=== PATIENT | male | born 2000 | race Asian ===

== ENCOUNTER 2023-02-25 03:38 | Emergency (ER) | payer OTHER, SELFPAY ==
--- NOTE | ~2023-02-25 | CT_ITS ---
EXAMINATION: CT ABDOMEN AND PELVIS WITH CONTRAST CLINICAL INFORMATION: Diffuse abdominal pain COMPARISON: None available. TECHNIQUE: Multidetector volumetric images were obtained from the superior aspect of the liver through the pubic symphysis following administration 85 mL of Omnipaque 350 intravenous contrast. Sagittal and coronal reformatted images were obtained on the technologist's workstation. Oral contrast: No This CT examination was performed using dose optimization techniques as appropriate, variously including the following: *Automated exposure control *Adjustment of mA and/or kV according to patient size (this includes techniques or standardized protocols for targeted exams where dose is matched to indication/reason for exam; i.e. extremities or head) *Use of iterative reconstruction technique DLP: 260 mGy-cm FINDINGS: LUNG BASES: The visualized lung bases are unremarkable. LIVER, GALLBLADDER, AND BILIARY TREE: The liver is normal in size, shape, and attenuation. No focal hepatic lesion or biliary ductal dilatation is present. Gallbladder appears to be contracted in the central upper abdomen. I do not see any adjacent inflammatory change. PANCREAS: Unremarkable. SPLEEN: Unremarkable. ADRENAL GLANDS: Unremarkable. KIDNEYS AND URETERS: The kidneys are normal in size, shape, and attenuation. No hydronephrosis, hydroureter, or calculi seen. No perinephric stranding. BLADDER: Thick walled but decompressed. GASTROINTESTINAL TRACT: There is no bowel obstruction or right lower quadrant inflammatory change. The sigmoid is decompressed and there is mild induration around the sigmoid colon and rectum. A mild colitis could have such an appearance. I do not see evidence for perforation or drainable abscess collection. ABDOMINAL WALL: No significant hernia is appreciated. LYMPH NODES: Normal. VASCULAR: Unremarkable. PELVIC VISCERA: Unremarkable. OSSEOUS STRUCTURES: Unremarkable. CT/CT abdomen pelvis w IV con IMPRESSION: There may be mild induration or inflammatory process related to the sigmoid colon and rectum suspicious for proctitis and colitis.
[2023-02-25 03:41] VITALS: BP 123/75; PULSE 89; RESP 18; TEMP 36.8; O2SAT 97; BMI 23.0
[2023-02-25 04:38] LABS: Basophils Percent Auto 0.2 % (0-2); Eosinophils Absolute Auto 0.1 X10*3/uL (0.0-0.4); Eosinophils Percent Auto 0.9 % (0-4); Hemoglobin 17.4 g/dl (14.0-18.0); Imm Gran Abs Auto 0.07 X10*3/uL (0.00-0.03); Imm Gran Pct Auto 0.4 % (0.0-0.4); Lymphocytes Absolute Auto 1.6 X10*3/uL (1.2-4.9); MANUAL DIFF FLAG NO; Mean Corpuscular HGB Conc 34.8 g/dl (31.0-36.0); Mean Corpuscular Hemoglobin 30.5 pg (27.0-33.0); Mean Corpuscular Volume 87.7 fL (80.0-98.0); Mean Platelet Volume 10.4 fL (9.4-12.4); Monocytes Absolute Auto 0.1 X10*3/uL (0.1-1.2); Monocytes Percent Auto 0.4 % (2-11); Neutrophils Absolute Auto 14.3 x10*3/uL (2.0-8.3); Neutrophils Percent Auto 88.1 % (45-73); Platelet Count 208 X10*3/uL (160-400); Red Cell Distribution Width 11.6 % (11.0-16.0); White Blood Count 16.3 X10*3/uL (4.8-10.8)
[2023-02-25 05:06] LABS: Alanine Aminotransferase 15 U/L (0-40); Albumin Level 4.8 g/dL (3.5-5.0); Alkaline Phosphatase 84 U/L (39-117); Anion Gap 16 (12-20); Aspartate Amino Transferase 15 U/L (5-37); Bilirubin Direct 0.2 mg/dL (0.0-0.5); Bilirubin Total 0.8 mg/dL (0.0-1.0); Blood Urea Nitrogen 18 mg/dL (9-16); Carbon Dioxide 25 mmol/L (22-29); Chloride 103 mmol/L (96-108); Creatinine Clr Calc Pharmacy 125.2; Estimated Glomerular Filt Rate > 60; Glucose Random 164 mg/dL (60-115); Lipase 22 U/L (8-78); Potassium 3.9 mmol/L (3.3-5.1); Sodium 140 mmol/L (135-145); Total Protein 7.5 g/dL (6.5-8.0)
[2023-02-25 05:31] VITALS: BP 134/85; PULSE 108; TEMP 38.1; O2SAT 99
--- NOTE | 2023-02-25 05:32 | MHC.EDTECH ---
pt arrived with an internal temp of 100.5. pt clothing removed and placed on monitor technician
--- NOTE | 2023-02-25 05:42 | ECG_ITS ---
Test Reason : LETHARGIC Blood Pressure : / mmHG Vent. Rate : 113 BPM Atrial Rate : 113 BPM P-R Int : 128 ms QRS Dur : 110 ms QT Int : 328 ms P-R-T Axes : 076 128 048 degrees QTc Int : 449 ms Sinus tachycardia Biatrial enlargement Right axis deviation Pulmonary disease pattern Incomplete right bundle branch block Right ventricular hypertrophy Abnormal ECG No previous ECGs available Referred By: Generic ED Physician Electronically Signed By:DORCAS MADRIGAL MD
--- NOTE | 2023-02-25 05:59 | ED.ABDPAIN ---
HPI - Abdominal Pain General Chief Complaint: Abdominal Pain <Patience Goss MD - Last Filed: 02/25/23 06:27> Stated Complaint: stomach pain, n/v <Patience Goss MD - Last Filed: 02/25/23 06:27> Time Seen by Provider: 02/25/23 06:19 <Patience Goss MD - Last Filed: 02/25/23 06:27> Source: patient <Patience Goss MD - Last Filed: 02/25/23 06:27> Mode of arrival: ambulatory <Patience Goss MD - Last Filed: 02/25/23 06:27> Limitations: no limitations <Patience Goss MD - Last Filed: 02/25/23 06:27> History of Present Illness HPI narrative: Patient comes to the emergency room complaining of diffuse abdominal pain, nausea vomiting and diarrhea. Also fever. Patient states that 3 hours ago he woke up with excruciating abdominal pain. Had multiple episodes of vomiting and diarrhea. Patient states that yesterday before he went to bed, he was asymptomatic. Patient states that he is gluten intolerant, does not believe that he ate anything with gluten. <Patience Goss MD - Last Filed: 02/25/23 06:27> Related Data Home Medications: Previous Rx's Medication Instructions Recorded amoxicillin 875 mg-potassium 1 tab PO Q8H 10 days #30 tabs 02/25/23 clavulanate 125 mg tablet <Patience Goss MD - Last Filed: 02/25/23 06:27> Allergies/Adverse Reactions: Allergies Allergy/AdvReac Type Severity Reaction Status Date / Time No Known Allergies Allergy Unverified 07/11/20 19:15 [No Known Allergies*] <Patience Goss MD - Last Filed: 02/25/23 06:27> Review of Systems Review of Systems Constitutional : No Weight loss, No Fever, No Chills, No Night Sweats, No Fatigue, No Malaise ENT/Mouth : No Hearing loss, No Ear Pain, No Nasal Congestion, No Sinus Pain, No Hoarseness, No sore throat, No Rhinorrhea, No Swallowing Difficulty Eyes: No Eye Pain, No Swelling, No Redness, No Foreign Body, No Discharge, No Vision Changes Cardiovascular : No Chest Pain, No SOB, No Dyspnea on Exertion, No Orthopnea, No Edema, No Palpitations Respiratory : No Cough, No Sputum, No Wheezing, No Smoke Exposure, No Dyspnea Gastrointestinal : Complaining of nausea vomiting diarrhea, abdominal pain, and blood in the stool Genitourinary : no irregular bleeding, No Dysuria, No Urinary Frequency, No Hematuria, No Urinary Incontinence, No Urgency, No Flank Pain, No Urinary Flow Changes, No Hesitancy Musculoskeletal : No joint pain, No Myalgias, No Joint Swelling Skin : No Skin Lesions, No rash Neuro : No Weakness, No Numbness, No Paresthesias, No Loss of Consciousness, No Dizziness, No Headache Psych : No Anxiety/Panic, No Depression, No SI/HI/AH/VH, No Social Issues, Heme/Lymph: No Bruising, No Bleeding,No Lymphadenopathy Endocrine : No Polyuria, No Polydipsia, No Temperature Intolerance <Patience Goss MD - Last Filed: 02/25/23 06:27> [facility] Past Medical History Medical History: Medical History (Updated 02/25/23 @ 09:23 by David Servin MD) Gluten intolerance <Patience Goss MD - Last Filed: 02/25/23 06:27> Social History Social History: Social History Alcohol intake: never Smoked in Last 30 Days: No Use of substances other than those prescribed or required for medical reasons: No Advance Directives: No Advance Directives Information Provided: Yes <Patience Goss MD - Last Filed: 02/25/23 06:27> Physical Exam ED Vital Signs: Vital Signs - 24 hr 02/25/23 03:41 02/25/23 05:31 02/25/23 07:15 Temperature 98.3 F 100.5 F H Pulse Rate 89 108 H 96 Respiratory Rate 18 18 Blood Pressure 123/75 134/85 112/66 Pulse Oximetry 97 99 97 Oxygen Delivery Method Room Air Room Air Room Air BMI result Body Mass Index 23.0 <Patience Goss MD - Last Filed: 02/25/23 06:27> Vital Signs - 24 hr 02/25/23 03:41 02/25/23 05:31 02/25/23 07:15 Temperature 98.3 F 100.5 F H Pulse Rate 89 108 H 96 Respiratory Rate 18 18 Blood Pressure 123/75 134/85 112/66 Pulse Oximetry 97 99 97 Oxygen Delivery Method Room Air Room Air Room Air BMI result Body Mass Index 23.0 <David Servin MD - Last Filed: 02/25/23 09:25> Const Other: Appearance: Alert. Oriented X3. Ill-appearing Eyes: Pupils equal, round and reactive to light. ENT: Pharynx normal. Neck: Normal inspection. Neck supple. No lymph nodes noted. No crepitus CVS: Normal heart rate and rhythm. Pulses normal. Normal S1 and S2 Respiratory: No respiratory distress. Breath sounds normal. No Wheezing. No rales Abdomen: Soft and nontender. No rigidity. No distention. Skin: Skin warm and dry. Normal skin color. Normal skin turgor. Extremities: No lower extremity edema. No Lacerations. No Rash Neuro: Oriented X 3. No motor deficit. No sensory deficit. Moving all extremities. No slurred speech. CN 2 through 12 grossly intact Psych: calm, cooperative, normal affect <Patience Goss MD - Last Filed: 02/25/23 06:27> Course Course Course Narrative: -all of patient's labs and imaging pending. -patient receiving IV fluids, Tylenol, loperamide and Zofran. <Patience Goss MD - Last Filed: 02/25/23 06:27> Reevaluation(s) Reevaluation #1: I evaluated the patient. He is currently receiving antibiotics. Mother was concerned about intravenous contrast. I spoke with patient and mother for approximately 10 minutes about alternatives. Ultimately they agreed to have an intravenous contrast study. We also discussed assuming patient can be discharged, and appropriate clear liquid diet and reasons to return to the hospital. However, we were will still need to have evaluate imaging studies to determine an appropriate disposition. <David Servin MD - Last Filed: 02/25/23 09:25> Time: 08:00 <David Servin MD - Last Filed: 02/25/23 09:25> Reevaluation #2: Patient's CT scan is complete. Demonstrates proctocolitis. This could be infectious or inflammatory. Will treat for infectious etiology. Will refer to a gastroenterology. Patient will start Augmentin 3 times daily. In addition, patient was made aware to start a clear liquid diet for least the next 48 hours. He is in been instructed to return for worsening bleeding, abdominal pain, intractable nausea vomiting or any other concerning symptoms. <David Servin MD - Last Filed: 02/25/23 09:25> Time: 09:22 <David Servin MD - Last Filed: 02/25/23 09:25> Medical Decision Making Medical Decision Making [facility] Narrative: -patient has a fever, elevated white blood cell count. Blood pressure is stable, sepsis is not suspected. occult stool test positive for blood. Patient likely has colitis. We will empirically treated with antibiotics -patient receiving IV fluids. Levaquin and metronidazole IV -CT scan pending <Patience Goss MD - Last Filed: 02/25/23 06:27> Lab Data Result Diagrams: 02/25/23 04:34 02/25/23 04:34 <Patience Goss MD - Last Filed: 02/25/23 06:27> Labs: Lab Results 02/25/23 02/25/23 02/25/23 Range/Units 04:34 04:34 06:08 WBC 16.3 H (4.8-10.8) X10*3/uL RBC 5.70 (4.60-5.80) X10*6/uL Hgb 17.4 (14.0-18.0) g/dl Hct 50.0 (42.0-52.0) % MCV 87.7 (80.0-98.0) fL MCH 30.5 (27.0-33.0) pg MCHC 34.8 (31.0-36.0) g/dl RDW 11.6 (11.0-16.0) % Plt Count 208 (160-400) X10*3/uL MPV 10.4 (9.4-12.4) fL Immature Gran % (Auto) 0.4 (0.0-0.4) % Neut % (Auto) 88.1 H (45-73) % Lymph % (Auto) 10.0 L (20-40) % [place] % (Auto) 0.4 L (2-11) % Eos % (Auto) 0.9 (0-4) % Baso % (Auto) 0.2 (0-2) % Lymph # (Auto) 1.6 (1.2-4.9) X10*3/uL [place] # (Auto) 0.1 (0.1-1.2) X10*3/uL Eos # (Auto) 0.1 (0.0-0.4) X10*3/uL Baso # (Auto) 0.0 (0.0-0.2) X10*3/uL Abs Immat Gran (auto) 0.07 H (0.00-0.03) X10*3/uL Absolute Neuts (auto) 14.3 H (2.0-8.3) x10*3/uL Absolute Nucleated RBC 0.000 (0.0-0.012) X10*3/uL Nucleated RBC % (auto) 0.0 (0.0-0.2) /100WBC Sodium 140 (135-145) mmol/L Potassium 3.9 (3.3-5.1) mmol/L Chloride 103 (96-108) mmol/L Carbon Dioxide 25 (22-29) mmol/L Anion Gap 16 (12-20) BUN 18 H (9-16) mg/dL Creatinine 0.95 (0.5-1.4) mg/dL Estim Creat Clear Calc 125.2 Estimated GFR > 60 Random Glucose 164 H (60-115) mg/dL Lactic Acid 2.3 H* (0.5-2.0) mmol/L Calcium 10.0 (8.4-10.2) mg/dL Total Bilirubin 0.8 (0.0-1.0) mg/dL Direct Bilirubin 0.2 (0.0-0.5) mg/dL AST 15 (5-37) U/L ALT 15 (0-40) U/L Alkaline Phosphatase 84 (39-117) U/L Total Protein 7.5 (6.5-8.0) g/dL Albumin 4.8 (3.5-5.0) g/dL Lipase 22 (8-78) U/L Urine Color Urine Appearance Urine pH (5.0-9.0) Ur Specific [place] (1.005-1.025) Urine Protein (Neg-Trace) mg/dL Urine Glucose (UA) (Negative) mg/dL Urine Ketones (Negative) mg/dL Urine Blood (Negative) Urine Nitrite (Negative) Ur Leukocyte Esterase (Negative) Urine RBC (0-2) /HPF Urine WBC (0-5) /HPF Ur Squamous Epith Cells (0-2) /HPF Urine Bacteria (None Seen) Hyaline Casts (0-2) /LPF Stool Occult Blood (NEGATIVE) Urine Opiates Screen (Not Detect) Urine Fentanyl Screen (Not Detect) Ur Barbiturates Screen (Not Detect) Ur Phencyclidine Scrn (Not Detect) Ur Amphetamines Screen (Not Detect) U Benzodiazepines Scrn (Not Detect) Urine Cocaine Screen (Not Detect) U Marijuana (THC) Screen (Not Detect) 02/25/23 02/25/23 02/25/23 Range/Units 06:08 07:46 07:46 WBC (4.8-10.8) X10*3/uL RBC (4.60-5.80) X10*6/uL Hgb (14.0-18.0) g/dl Hct (42.0-52.0) % MCV (80.0-98.0) fL MCH (27.0-33.0) pg MCHC (31.0-36.0) g/dl RDW (11.0-16.0) % Plt Count (160-400) X10*3/uL MPV (9.4-12.4) fL Immature Gran % (Auto) (0.0-0.4) % Neut % (Auto) (45-73) % Lymph % (Auto) (20-40) % [place] % (Auto) (2-11) % Eos % (Auto) (0-4) % Baso % (Auto) (0-2) % Lymph # (Auto) (1.2-4.9) X10*3/uL [place] # (Auto) (0.1-1.2) X10*3/uL Eos # (Auto) (0.0-0.4) X10*3/uL Baso # (Auto) (0.0-0.2) X10*3/uL Abs Immat Gran (auto) (0.00-0.03) X10*3/uL Absolute Neuts (auto) (2.0-8.3) x10*3/uL Absolute Nucleated RBC (0.0-0.012) X10*3/uL Nucleated RBC % (auto) (0.0-0.2) /100WBC Sodium (135-145) mmol/L Potassium (3.3-5.1) mmol/L Chloride (96-108) mmol/L Carbon Dioxide (22-29) mmol/L Anion Gap (12-20) BUN (9-16) mg/dL Creatinine (0.5-1.4) mg/dL Estim Creat Clear Calc Estimated GFR Random Glucose (60-115) mg/dL Lactic Acid (0.5-2.0) mmol/L Calcium (8.4-10.2) mg/dL Total Bilirubin (0.0-1.0) mg/dL Direct Bilirubin (0.0-0.5) mg/dL AST (5-37) U/L ALT (0-40) U/L Alkaline Phosphatase (39-117) U/L Total Protein (6.5-8.0) g/dL Albumin (3.5-5.0) g/dL Lipase (8-78) U/L Urine Color Dark Yellow Urine Appearance Clear Urine pH 5.5 (5.0-9.0) Ur Specific [place] >= 1.030 H (1.005-1.025) Urine Protein 30 (1+) H (Neg-Trace) mg/dL Urine Glucose (UA) 100 H (Negative) mg/dL Urine Ketones Trace (Negative) mg/dL Urine Blood Negative (Negative) Urine Nitrite Negative (Negative) Ur Leukocyte Esterase Negative (Negative) Urine RBC 0-2 (0-2) /HPF Urine WBC 0-5 (0-5) /HPF Ur Squamous Epith Cells 0-2 (0-2) /HPF Urine Bacteria None Seen (None Seen) Hyaline Casts 0-2 (0-2) /LPF Stool Occult Blood POSITIVE (NEGATIVE) Urine Opiates Screen Not Detected (Not Detect) Urine Fentanyl Screen Not Detected (Not Detect) Ur Barbiturates Screen Not Detected (Not Detect) Ur Phencyclidine Scrn Not Detected (Not Detect) Ur Amphetamines Screen Not Detected (Not Detect) U Benzodiazepines Scrn Not Detected (Not Detect) Urine Cocaine Screen Not Detected (Not Detect) U Marijuana (THC) Screen Not Detected (Not Detect) <Patience Goss MD - Last Filed: 02/25/23 06:27> Lab Results 02/25/23 02/25/23 02/25/23 Range/Units 04:34 04:34 06:08 WBC 16.3 H (4.8-10.8) X10*3/uL RBC 5.70 (4.60-5.80) X10*6/uL Hgb 17.4 (14.0-18.0) g/dl Hct 50.0 (42.0-52.0) % MCV 87.7 (80.0-98.0) fL MCH 30.5 (27.0-33.0) pg MCHC 34.8 (31.0-36.0) g/dl RDW 11.6 (11.0-16.0) % Plt Count 208 (160-400) X10*3/uL MPV 10.4 (9.4-12.4) fL Immature Gran % (Auto) 0.4 (0.0-0.4) % Neut % (Auto) 88.1 H (45-73) % Lymph % (Auto) 10.0 L (20-40) % [place] % (Auto) 0.4 L (2-11) % Eos % (Auto) 0.9 (0-4) % Baso % (Auto) 0.2 (0-2) % Lymph # (Auto) 1.6 (1.2-4.9) X10*3/uL [place] # (Auto) 0.1 (0.1-1.2) X10*3/uL Eos # (Auto) 0.1 (0.0-0.4) X10*3/uL Baso # (Auto) 0.0 (0.0-0.2) X10*3/uL Abs Immat Gran (auto) 0.07 H (0.00-0.03) X10*3/uL Absolute Neuts (auto) 14.3 H (2.0-8.3) x10*3/uL Absolute Nucleated RBC 0.000 (0.0-0.012) X10*3/uL Nucleated RBC % (auto) 0.0 (0.0-0.2) /100WBC Sodium 140 (135-145) mmol/L Potassium 3.9 (3.3-5.1) mmol/L Chloride 103 (96-108) mmol/L Carbon Dioxide 25 (22-29) mmol/L Anion Gap 16 (12-20) BUN 18 H (9-16) mg/dL Creatinine 0.95 (0.5-1.4) mg/dL Estim Creat Clear Calc 125.2 Estimated GFR > 60 Random Glucose 164 H (60-115) mg/dL Lactic Acid 2.3 H* (0.5-2.0) mmol/L Calcium 10.0 (8.4-10.2) mg/dL Total Bilirubin 0.8 (0.0-1.0) mg/dL Direct Bilirubin 0.2 (0.0-0.5) mg/dL AST 15 (5-37) U/L ALT 15 (0-40) U/L Alkaline Phosphatase 84 (39-117) U/L Total Protein 7.5 (6.5-8.0) g/dL Albumin 4.8 (3.5-5.0) g/dL Lipase 22 (8-78) U/L Urine Color Urine Appearance Urine pH (5.0-9.0) Ur Specific [place] (1.005-1.025) Urine Protein (Neg-Trace) mg/dL Urine Glucose (UA) (Negative) mg/dL Urine Ketones (Negative) mg/dL Urine Blood (Negative) Urine Nitrite (Negative) Ur Leukocyte Esterase (Negative) Urine RBC (0-2) /HPF Urine WBC (0-5) /HPF Ur Squamous Epith Cells (0-2) /HPF Urine Bacteria (None Seen) Hyaline Casts (0-2) /LPF Stool Occult Blood (NEGATIVE) Urine Opiates Screen (Not Detect) Urine Fentanyl Screen (Not Detect) Ur Barbiturates Screen (Not Detect) Ur Phencyclidine Scrn (Not Detect) Ur Amphetamines Screen (Not Detect) U Benzodiazepines Scrn (Not Detect) Urine Cocaine Screen (Not Detect) U Marijuana (THC) Screen (Not Detect) 02/25/23 02/25/23 02/25/23 Range/Units 06:08 07:46 07:46 WBC (4.8-10.8) X10*3/uL RBC (4.60-5.80) X10*6/uL Hgb (14.0-18.0) g/dl Hct (42.0-52.0) % MCV (80.0-98.0) fL MCH (27.0-33.0) pg MCHC (31.0-36.0) g/dl RDW (11.0-16.0) % Plt Count (160-400) X10*3/uL MPV (9.4-12.4) fL Immature Gran % (Auto) (0.0-0.4) % Neut % (Auto) (45-73) % Lymph % (Auto) (20-40) % [place] % (Auto) (2-11) % Eos % (Auto) (0-4) % Baso % (Auto) (0-2) % Lymph # (Auto) (1.2-4.9) X10*3/uL [place] # (Auto) (0.1-1.2) X10*3/uL Eos # (Auto) (0.0-0.4) X10*3/uL Baso # (Auto) (0.0-0.2) X10*3/uL Abs Immat Gran (auto) (0.00-0.03) X10*3/uL Absolute Neuts (auto) (2.0-8.3) x10*3/uL Absolute Nucleated RBC (0.0-0.012) X10*3/uL Nucleated RBC % (auto) (0.0-0.2) /100WBC Sodium (135-145) mmol/L Potassium (3.3-5.1) mmol/L Chloride (96-108) mmol/L Carbon Dioxide (22-29) mmol/L Anion Gap (12-20) BUN (9-16) mg/dL Creatinine (0.5-1.4) mg/dL Estim Creat Clear Calc Estimated GFR Random Glucose (60-115) mg/dL Lactic Acid (0.5-2.0) mmol/L Calcium (8.4-10.2) mg/dL Total Bilirubin (0.0-1.0) mg/dL Direct Bilirubin (0.0-0.5) mg/dL AST (5-37) U/L ALT (0-40) U/L Alkaline Phosphatase (39-117) U/L Total Protein (6.5-8.0) g/dL Albumin (3.5-5.0) g/dL Lipase (8-78) U/L Urine Color Dark Yellow Urine Appearance Clear Urine pH 5.5 (5.0-9.0) Ur Specific [place] >= 1.030 H (1.005-1.025) Urine Protein 30 (1+) H (Neg-Trace) mg/dL Urine Glucose (UA) 100 H (Negative) mg/dL Urine Ketones Trace (Negative) mg/dL Urine Blood Negative (Negative) Urine Nitrite Negative (Negative) Ur Leukocyte Esterase Negative (Negative) Urine RBC 0-2 (0-2) /HPF Urine WBC 0-5 (0-5) /HPF Ur Squamous Epith Cells 0-2 (0-2) /HPF Urine Bacteria None Seen (None Seen) Hyaline Casts 0-2 (0-2) /LPF Stool Occult Blood POSITIVE (NEGATIVE) Urine Opiates Screen Not Detected (Not Detect) Urine Fentanyl Screen Not Detected (Not Detect) Ur Barbiturates Screen Not Detected (Not Detect) Ur Phencyclidine Scrn Not Detected (Not Detect) Ur Amphetamines Screen Not Detected (Not Detect) U Benzodiazepines Scrn Not Detected (Not Detect) Urine Cocaine Screen Not Detected (Not Detect) U Marijuana (THC) Screen Not Detected (Not Detect) <David Servin MD - Last Filed: 02/25/23 09:25> Independent Interpretation I performed an independent interpretation of an: CT Scan ( CT/CT abdomen pelvis w IV con IMPRESSION: There may be mild induration or inflammatory process related to the sigmoid colon and rectum suspicious for proctitis and colitis. Dictated By:Humza Early MDSigned By:<Electronically signed by Humza Early MD in [place]>02/25/23 0850) <David Servin MD - Last Filed: 02/25/23 09:25> Medications Administered Discontinued Medications Generic Name Dose Route Start Last Admin Trade Name Freq PRN Reason Stop Dose Admin Acetaminophen 975 mg 02/25/23 05:58 02/25/23 06:15 Acetaminophen 325 Mg Tablet PO 02/25/23 05:59 975 mg ONCE ONE Administration Sodium Chloride 1,000 mls @ 999 mls/hr 02/25/23 05:50 02/25/23 07:16 Ns IVCONT 02/25/23 06:50 Infused .Q1H1M ONE Infusion Levofloxacin 500 mg in 100 mls @ 100 mls/hr 02/25/23 06:25 02/25/23 07:16 Levaquin IV 02/25/23 07:24 Infused ONCE ONE Infusion Metronidazole 500 mg in 100 mls @ 100 mls/hr 02/25/23 06:25 02/25/23 08:54 Flagyl IV 02/25/23 07:24 Infused ONCE ONE Infusion Iohexol 100 ml 02/25/23 08:31 02/25/23 08:31 Iohexol 350 Mg/Ml 100 Ml Infus..Btl IV 02/25/23 08:32 85 ml ONCE ONE Administration Loperamide HCl 4 mg 02/25/23 05:58 02/25/23 06:15 Loperamide Hcl 2 Mg Capsule PO 02/25/23 05:59 4 mg ONCE ONE Administration Ondansetron HCl 4 mg 02/25/23 05:50 02/25/23 06:15 Ondansetron Hcl 4 Mg/2 Ml Vial IVPUSH 02/25/23 05:51 4 mg ONCE ONE Administration <Patience Goss MD - Last Filed: 02/25/23 06:27> Medications Administered Discontinued Medications Generic Name Dose Route Start Last Admin Trade Name Freq PRN Reason Stop Dose Admin Acetaminophen 975 mg 02/25/23 05:58 02/25/23 06:15 Acetaminophen 325 Mg Tablet PO 02/25/23 05:59 975 mg ONCE ONE Administration Sodium Chloride 1,000 mls @ 999 mls/hr 02/25/23 05:50 02/25/23 07:16 Ns IVCONT 02/25/23 06:50 Infused .Q1H1M ONE Infusion Levofloxacin 500 mg in 100 mls @ 100 mls/hr 02/25/23 06:25 02/25/23 07:16 Levaquin IV 02/25/23 07:24 Infused ONCE ONE Infusion Metronidazole 500 mg in 100 mls @ 100 mls/hr 02/25/23 06:25 02/25/23 08:54 Flagyl IV 02/25/23 07:24 Infused ONCE ONE Infusion Iohexol 100 ml 02/25/23 08:31 02/25/23 08:31 Iohexol 350 Mg/Ml 100 Ml Infus..Btl IV 02/25/23 08:32 85 ml ONCE ONE Administration Loperamide HCl 4 mg 02/25/23 05:58 02/25/23 06:15 Loperamide Hcl 2 Mg Capsule PO 02/25/23 05:59 4 mg ONCE ONE Administration Ondansetron HCl 4 mg 02/25/23 05:50 02/25/23 06:15 Ondansetron Hcl 4 Mg/2 Ml Vial IVPUSH 02/25/23 05:51 4 mg ONCE ONE Administration <David Servin MD - Last Filed: 02/25/23 09:25> Discharge Plan Discharge Clinical Impression: Abdominal pain, Nausea vomiting and diarrhea, Bloody stool <Patience Goss MD - Last Filed: 02/25/23 06:27> Patient Disposition: Home, Self-Care <Patience Goss MD - Last Filed: 02/25/23 06:27> Instructions: Gastrointestinal Bleeding (ED), Crohn Disease (ED), Clear Liquid Diet (ED), Ulcerative Colitis (ED), Abdominal Pain (ED), Colitis (ED) <Patience Goss MD - Last Filed: 02/25/23 06:27> Prescriptions: New amoxicillin-pot clavulanate 875-125 mg tablet 1 tab PO Q8H 10 Days Qty: 30 0RF <Patience Goss MD - Last Filed: 02/25/23 06:27> Referrals: Lucio Oleary MD [Physician] - 1 week <Patience Goss MD - Last Filed: 02/25/23 06:27>
[2023-02-25] MEDS: Acetaminophen 325 MG TABLET 975 MG PO (06:15)
[2023-02-25] MEDS: 0.9 % Sodium Chloride 1,000 ML 999 ML IVCONT (06:15)
[2023-02-25] MEDS: Loperamide HCl 2 MG CAPSULE 4 MG PO (06:15)
[2023-02-25] MEDS: ondansetron HCL 4 MG/2 ML VIAL IVPUSH (06:15)
[2023-02-25 06:23] LABS: OBS Int Ctl Valid YES; OBS1 POSITIVE (NEGATIVE)
[2023-02-25 06:32] LABS: Lactic Acid 2.3 mmol/L (0.5-2.0)
[2023-02-25] MEDS: levoFLOXacin/D5W 500 MG/100 ML PIGGYBACK 100 MG IV (06:36)
[2023-02-25 07:15] VITALS: BP 112/66; PULSE 96; RESP 18; O2SAT 97
--- NOTE | 2023-02-25 07:20 | PC.NURSE ---
pt is alert and oriented, skin warm to touch and appropriate for ethnicity, respirations even and unlabored, abd soft and non-tender, bowel sounds in all 4 quadrants, pt denies pain and denies nausea. pt reports when he has a bowel movement noticed blood in the stool, vs stable and ns on the monitor
[2023-02-25] MEDS: metroNIDAZOLE/NS 500 MG/100 ML PIGGYBACK 100 MG IV (07:21)
[2023-02-25 07:53] LABS: Appearance Urine Clear; Color Urine Dark Yellow; Glucose Urine UA 100 mg/dL (Negative); Leukocyte Esterase Urine Negative (Negative); Nitrite Urine Negative (Negative); PH 5.5 (5.0-9.0); Specific Gravity - Urine >= 1.030 (1.005-1.025); UMIC TRIGGER UACC YES; Urine Blood Negative (Negative); Urine Ketones Trace mg/dL (Negative); Urine Protein 30 (1+) mg/dL (Neg-Trace)
[2023-02-25 07:56] LABS: Bacteria Urine None Seen (None Seen); Hyaline Casts Urine 0-2 /LPF (0-2); RBC Urine 0-2 /HPF (0-2); Squamous Epithelial Cell Urine 0-2 /HPF (0-2); WBC Urine 0-5 /HPF (0-5)
[2023-02-25 08:04] LABS: Amphetamine Screen Urine Not Detected (Not Detect); Barbiturates, Urine Not Detected (Not Detect); Benzodiazepines Screen Urine Not Detected (Not Detect); Cannabinoid Screen Urine Not Detected (Not Detect); Cocaine Screen Urine Not Detected (Not Detect); Fentanyl, urine Not Detected (Not Detect); Opiate Screen Urine Not Detected (Not Detect); Phencyclidine Screen Urine Not Detected (Not Detect)
[2023-02-25 08:16] LABS: Reflex Lactate? Lactic Acid Added
[2023-02-25] MEDS: iohexoL 350 MG/ML 100 ML INFUS..BTL IV (08:31)
[2023-02-25 09:34] LABS: ~Lactic Acid-LAB USE ONLY 1.9 mmol/L (0.5-2.0)
== END 2023-02-25 10:15 | disposition home or self-care (01) ==
PROVIDERS: Emergency Medicine; Emergency Provider Emergency Medicine
DX: R10.9 Unspecified abdominal pain (principal); R11.2 Nausea with vomiting, unspecified; R19.7 Diarrhea, unspecified; K92.1 Melena
CPT/HCPCS: 36415; 74177; 80048; 80076; 80307; 81001; 82272; 83605; 83690; 85025; 87040; 93005; 96361; 96365; 96375; 99284; 99285; J1956; J2405; Q9967

== ENCOUNTER 2023-02-26 00:53 | Emergency (ER) | payer OTHER, SELFPAY ==
[2023-02-26 01:58] VITALS: BP 124/86; PULSE 78; RESP 16; TEMP 37.1; O2SAT 97; BMI 15.5
--- NOTE | 2023-02-26 04:21 | ED_ITS ---
HPI - GI Bleed General Chief complaint: Abdominal Pain Stated complaint: Rectal bleeding Time Seen by Provider: 02/26/23 04:20 Source: patient Mode of arrival: ambulatory Limitations: no limitations History of Present Illness HPI Narrative: Patient was seen here last night for diffuse abdominal pain nausea vomiting and diarrhea with occult blood positive workup showed colitis and proctitis was prescribed Augmentin comes back as had 2 more bowel movements which were bloody did not eat or drink all day today took this augment no recent travel no fever or chills Related Data Previous Rx's Medication Instructions Recorded amoxicillin 875 mg-potassium 1 tab PO Q8H 10 days #30 tabs 02/25/23 clavulanate 125 mg tablet cefuroxime axetil 500 mg tablet 500 mg PO BID #20 tabs 02/26/23 metronidazole 500 mg tablet 500 mg PO BID 10 days #20 tabs 02/26/23 Allergies Allergy/AdvReac Type Severity Reaction Status Date / Time gluten AdvReac Abdominal Verified 02/26/23 02:03 Pain Review of Systems Review of Systems: Yes all other systems are reviewed and are negative [facility] Past Medical History Medical History Gluten intolerance Social History Social History Alcohol intake: never Advance Directives: No Advance Directives Information Provided: No Physical Exam Vital Signs: Vital Signs: Last Vital Signs Temp 98.8 F 02/26/23 01:58 Pulse 78 02/26/23 01:58 Resp 16 02/26/23 01:58 BP 124/86 02/26/23 01:58 Pulse Ox 97 02/26/23 01:58 O2 Del Method Room Air 02/26/23 01:58 BMI result Body Mass Index 15.5 Appearance: Alert. Oriented X3. No acute distress. Eyes: PERRLA, No Nystagmus ENT: Pharynx normal. Oral Mucosa moist Neck: Normal inspection. Neck supple. CVS: Normal heart rate and rhythm. Pulses normal. Respiratory: No respiratory distress. Equal air entry bilateral, no wheezing/rales/rhonchi Abdomen: Soft , diffuse tenderness Bowel sounds are present, no mass palpable, no CVA tenderness Skin: Skin warm and dry. Normal skin color. Normal skin turgor. Extremities: No lower extremity edema. No calf tenderness Neuro: Oriented X 3. No motor deficit. No sensory deficit.No cerebellar signs , cranial nerves II-XII intact Medications Administered Discontinued Medications Generic Name Dose Route Start Last Admin Trade Name Rosemarie PRN Reason Stop Dose Admin Sodium Chloride 1,000 mls @ 999 mls/hr 02/26/23 04:27 02/26/23 05:57 Ns IV 02/26/23 05:27 Infused .Q1H1M ONE Infusion Ceftriaxone Sodium 1 gm/ 50 mls @ 100 mls/hr 02/26/23 04:27 02/26/23 05:15 Sodium Chloride IV 02/26/23 04:56 Infused ONCE ONE Infusion Metronidazole 500 mg in 100 mls @ 100 mls/hr 02/26/23 04:27 02/26/23 06:06 Flagyl IV 02/26/23 05:26 Infused ONCE ONE Infusion Medical Decision Making Medical Decision Making [facility] Narrative: Patient showed a picture of bowel movements which were bloody small amount 630: Patient feeling much better now after IV fluids taking p.o. fluids no discharge patient home will change antibiotic to Ceftin and Flagyl for proctitis and colitis Lab Data [facility] Lab Attestation statement: I reviewed the patient's lab results. 02/26/23 04:45 02/26/23 04:45 Labs: Lab Results 02/26/23 02/26/23 02/26/23 Range/Units 04:45 04:45 04:45 WBC 10.5 (4.8-10.8) X10*3/uL RBC 5.14 (4.60-5.80) X10*6/uL Hgb 15.7 (14.0-18.0) g/dl Hct 44.9 (42.0-52.0) % MCV 87.4 (80.0-98.0) fL MCH 30.5 (27.0-33.0) pg MCHC 35.0 (31.0-36.0) g/dl RDW 11.6 (11.0-16.0) % Plt Count 166 (160-400) X10*3/uL MPV 10.4 (9.4-12.4) fL Immature Gran % (Auto) 0.3 (0.0-0.4) % Neut % (Auto) 83.7 H (45-73) % Lymph % (Auto) 9.0 L (20-40) % Mcculloch % (Auto) 6.5 (2-11) % Eos % (Auto) 0.3 (0-4) % Baso % (Auto) 0.2 (0-2) % Lymph # (Auto) 0.9 L (1.2-4.9) X10*3/uL Mcculloch # (Auto) 0.7 (0.1-1.2) X10*3/uL Eos # (Auto) 0.0 (0.0-0.4) X10*3/uL Baso # (Auto) 0.0 (0.0-0.2) X10*3/uL Abs Immat Gran (auto) 0.03 (0.00-0.03) X10*3/uL Absolute Neuts (auto) 8.8 H (2.0-8.3) x10*3/uL Absolute Nucleated RBC 0.000 (0.0-0.012) X10*3/uL Nucleated RBC % (auto) 0.0 (0.0-0.2) /100WBC Sodium 139 (135-145) mmol/L Potassium 4.1 (3.3-5.1) mmol/L Chloride 105 (96-108) mmol/L Carbon Dioxide 24 (22-29) mmol/L Anion Gap 14 (12-20) BUN 14 (9-16) mg/dL Creatinine 0.81 (0.5-1.4) mg/dL Estim Creat Clear Calc 99.1 Estimated GFR > 60 Random Glucose 104 (60-115) mg/dL Lactic Acid 1.1 (0.5-2.0) mmol/L Calcium 9.0 D (8.4-10.2) mg/dL Discharge Plan Discharge Clinical Impression: Colitis Patient Disposition: Home, Self-Care Instructions: Colitis (ED) Additional Instructions: drink plenty of fluids Have yogurt If diarrhea with blood continues take the antibiotic as prescribed given discontinue Augmentin Follow with PCP if not better Prescriptions: New cefuroxime axetil 500 mg tablet 500 mg PO BID Qty: 20 0RF metronidazole 500 mg tablet 500 mg PO BID 10 Days Qty: 20 0RF No Action amoxicillin-pot clavulanate 875-125 mg tablet 1 tab PO Q8H 10 Days Qty: 30 0RF Discharge Date/Time: 02/26/23 06:58
[2023-02-26] MEDS: 0.9 % Sodium Chloride 1,000 ML 999 ML IV (04:45)
[2023-02-26] MEDS: cefTRIAXone sodium 1 GM in 0.9 % Sodium Chloride 50 ML IV (04:49)
[2023-02-26 04:50] LABS: Basophils Percent Auto 0.2 % (0-2); Eosinophils Percent Auto 0.3 % (0-4); Hematocrit 44.9 % (42.0-52.0); Hemoglobin 15.7 g/dl (14.0-18.0); Imm Gran Abs Auto 0.03 X10*3/uL (0.00-0.03); Imm Gran Pct Auto 0.3 % (0.0-0.4); Lymphocytes Absolute Auto 0.9 X10*3/uL (1.2-4.9); MANUAL DIFF FLAG NO; Mean Corpuscular Hemoglobin 30.5 pg (27.0-33.0); Mean Corpuscular Volume 87.4 fL (80.0-98.0); Mean Platelet Volume 10.4 fL (9.4-12.4); Monocytes Absolute Auto 0.7 X10*3/uL (0.1-1.2); Monocytes Percent Auto 6.5 % (2-11); Neutrophils Absolute Auto 8.8 x10*3/uL (2.0-8.3); Neutrophils Percent Auto 83.7 % (45-73); Platelet Count 166 X10*3/uL (160-400); Red Blood Count 5.14 X10*6/uL (4.60-5.80); Red Cell Distribution Width 11.6 % (11.0-16.0); White Blood Count 10.5 X10*3/uL (4.8-10.8)
[2023-02-26 05:01] LABS: Lactic Acid 1.1 mmol/L (0.5-2.0)
[2023-02-26 05:06] LABS: Anion Gap 14 (12-20); Blood Urea Nitrogen 14 mg/dL (9-16); Carbon Dioxide 24 mmol/L (22-29); Chloride 105 mmol/L (96-108); Creatinine Clr Calc Pharmacy 99.1; Estimated Glomerular Filt Rate > 60; Glucose Random 104 mg/dL (60-115); Potassium 4.1 mmol/L (3.3-5.1); Sodium 139 mmol/L (135-145)
[2023-02-26] MEDS: metroNIDAZOLE/NS 500 MG/100 ML PIGGYBACK 100 MG IV (05:13)
== END 2023-02-26 06:58 | disposition home or self-care (01) ==
PROVIDERS: Emergency Provider Internal Medicine
DX: K52.9 Noninfective gastroenteritis and colitis, unspecified (principal); Z79.899 Other long term (current) drug therapy
CPT/HCPCS: 36415; 80048; 83605; 85025; 96361; 96374; 96375; 99283; 99284; J0696